=== PATIENT | male | born 1990 | race Caucasian/White ===

== ENCOUNTER 2019-02-03 09:51 | Emergency (ER) | payer OTHER ==
[~2019-02-03] VITALS: Ht 170.2 cm; Wt 67.0 kg
[2019-02-03 09:55] VITALS: Ht 170.2 cm; Wt 67.0 kg
[2019-02-03] MEDS ORDERED: HYDROCODONE/APAP (10/325) TAB PO ONE (11:30)
[2019-02-03] MEDS ORDERED: IBUP800T48 PO (11:55)
[2019-02-03] MEDS ORDERED: HYDR-4011 PO (11:55)
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
[2019-02-03 12:14] VITALS: BP 128/64; PULSE 66; RESP 18
== END 2019-02-03 12:15 | disposition home or self-care (01) ==
LOC: FTE 09:51
DX: M25.562 Pain in left knee (principal); F17.210 Nicotine dependence, cigarettes, uncomplicated
CPT/HCPCS: 73562; Z7610